=== PATIENT | male | born 2000 | race Caucasian/White ===

== ENCOUNTER 2024-12-13 11:02 | Outpatient (CLI) | payer BC, SELFPAY | END 2024-12-13 11:03 | disposition home or self-care (01) | PROVIDERS: PCP Family Medicine; Visit Provider Family Medicine | DX: E66.09 Other obesity due to excess calories (principal); R40.0 Somnolence; R53.83 Other fatigue | CPT/HCPCS: 80048; 80061; 84443; 85025 ==